=== PATIENT | male | born 1960 | race Caucasian/White ===

== ENCOUNTER 2018-11-18 08:44 | Emergency (ER) | payer MEDICAID ==
[2018-11-18] MEDS: CEFTRIAXONE 1 GM/50 ML (PMX) 50 ML IVPB (09:40)
[2018-11-18] MEDS: KETOROLAC 30 MG INJ IV (09:41)
[2018-11-18] MEDS: SOD CHLORIDE 0.9% 1,000 ML IV (09:41)
[2018-11-18 09:50] LABS: ADD MAN DIFF? NO
[2018-11-18 09:54] LABS: BASOPHILS % 0.4 % (0.0-2.0); EOSINOPHILS % 0.2 % (0.0-7.0); HEMATOCRIT 40.6 % (42.0-52.0); HEMOGLOBIN 13.8 g/dl (14.0-18.0); LYMPHOCYTES # 1.3 10^3/ul (0.8-2.9); LYMPHOCYTES % 13.6 % (15.0-51.0); MEAN CORPUSCULAR HEMOGLOBIN 29.4 pg (29.0-33.0); MEAN CORPUSCULAR VOLUME 86.6 fl (82.0-101.0); MEAN PLATELET VOLUME 9.6 fl (7.4-10.4); MONOCYTE # 0.8 10^3/ul (0.3-0.9); MONOCYTES % 8.3 % (0.0-11.0); NEUTROPHIL # 7.6 10^3/ul (1.6-7.5); PLATELET COUNT 239 10^3/UL (140-415); RED BLOOD COUNT 4.69 10^6/ul (4.70-6.10); RED CELL DISTRIBUTION WIDTH 13.5 % (11.5-14.5)
[2018-11-18 09:54] LABS: WHITE BLOOD COUNT 9.8 10^3/ul (4.8-10.8)
[2018-11-18 10:10] LABS: ALANINE AMINOTRANSFERASE 41 IU/L (13-69); ALBUMIN 4.1 g/dl (3.3-4.9); ALBUMIN/GLOBULIN RATIO 1.36; ALKALINE PHOSPHATASE 87 IU/L (42-121); ANION GAP 10 (5-13); ASPARTATE AMINO TRANSFERASE 39 IU/L (15-46); BILIRUBIN,INDIRECT 0.4 mg/dl (0-1.1); BILIRUBIN,TOTAL 0.4 mg/dl (0.2-1.3); BLOOD UREA NITROGEN 11 mg/dl (7-20); CARBON DIOXIDE 29 mmol/L (21-31); CHLORIDE 101 mmol/L (97-110); CREATININE 0.88 mg/dl (0.61-1.24); Estimated GFR > 60 mL/min (>60); GLUCOSE 153 mg/dl (70-220); LIPASE 85 U/L (23-300); POTASSIUM 4.2 mmol/L (3.5-5.1); SODIUM 140 mmol/L (135-144); TOTAL PROTEIN 7.1 g/dl (6.1-8.1)
[2018-11-18] MEDS ORDERED: LORAZEPAM 2 MG INJ (10:21)
[2018-11-18 10:25] LABS: ADD UMIC NO; UR ASCORBIC ACID NEGATIVE (NEGATIVE); UR BILIRUBIN (Dip) NEGATIVE (NEGATIVE); UR BLOOD (Dip) NEGATIVE (NEGATIVE); UR CLARITY CLEAR (CLEAR); UR COLOR YELLOW (YELLOW); UR GLUCOSE (Dip) NEGATIVE (NEGATIVE); UR KETONES (Dip) NEGATIVE (NEGATIVE); UR LEUKOCYTE ESTERASE (Dip) NEGATIVE Leu/ul (NEGATIVE); UR NITRITE (Dip) NEGATIVE (NEGATIVE); UR SPECIFIC GRAVITY (Dip) 1.012 (1.003-1.030); UR TOTAL PROTEIN (Dip) NEGATIVE (NEGATIVE); UR UROBILINOGEN (Dip) NEGATIVE (NEGATIVE)
== END 2018-11-18 11:56 | disposition home or self-care (01) ==
LOC: FTE 08:44
DX: I89.1 Lymphangitis (principal)
CPT/HCPCS: 36415; 80053; 81003; 83605; 83690; 85025; 87040; 93971; 96365; 96366; 96375; 99285-25

== ENCOUNTER 2018-12-01 14:55 | Emergency (ER) | payer MEDICAID ==
[2018-12-01] MEDS: ACETAMINOPHEN 325 MG TAB PO (15:55)
[2018-12-01] MEDS: LIDOCAINE 1% (MDV) 20 ML INJ SC (15:55)
== END 2018-12-01 16:10 | disposition home or self-care (01) ==
LOC: FTE 14:55
DX: L02.415 Cutaneous abscess of right lower limb (principal)
CPT/HCPCS: 10060; 99282-25

== ENCOUNTER 2018-12-04 16:02 | Emergency (ER) | payer MEDICAID | END 2018-12-04 17:17 | disposition home or self-care (01) | LOC: FTE 16:02 | DX: L02.415 Cutaneous abscess of right lower limb (principal) | CPT/HCPCS: 99283; Z7502 ==

== ENCOUNTER 2019-06-18 15:26 | Emergency (ER) | payer MEDICAID ==
[2019-06-18] MEDS: CEFTRIAXONE 1 GM INJ IM (16:50)
[2019-06-18] MEDS: LIDOCAINE 1% (MDV) 20 ML INJ SC ×2 (16:51→17:38)
== END 2019-06-18 17:46 | disposition home or self-care (01) ==
LOC: FTE 15:26
DX: L03.115 Cellulitis of right lower limb (principal)
CPT/HCPCS: 96372; 99284-25